=== PATIENT | female | born 1990 | race Caucasian/White ===

== ENCOUNTER 2019-02-26 13:05 | Day surgery (SDC) | payer MEDICAID, OTHER ==
[~2019-02-26 13:05] MED LIST: CEFAZOLIN SODIUM 2 GM in DEXTROSE 5%-WATER 100 ML IV PRN; IBUPROFEN 800 MG in NORMAL SALINE 250 ML IV PRN; RINGERS SOLUTION,LACTATED 1,000 ML IV PRN
[2019-02-26] MEDS ORDERED: MIDAZOLAM 2 MG/2 ML INJ ONE ×2 (13:50→14:45)
[2019-02-26] MEDS ORDERED: SCOPOLAMINE HYDROBROMIDE 1.5 MG PATCH.TD72 ONE (13:50)
[2019-02-26] MEDS ORDERED: ACETAMINOPHEN 325 MG TABLET ONE ×2 (14:22→16:41)
[2019-02-26] MEDS: ACETAMINOPHEN 325 MG TABLET PO PRN ×2 (14:25→16:39)
[2019-02-26] MEDS ORDERED: KETAMINE HCL INJ 500 MG/10 ML VIAL ONE (14:44)
[2019-02-26] MEDS ORDERED: FENTANYL CITRATE INJ/PF 100 MCG/2 ML AMPUL ONE (14:45)
[2019-02-26] MEDS ORDERED: PROPOFOL INJ 200 MG/20 ML VIAL IV ONE (14:45)
[2019-02-26] MEDS ORDERED: BUPIVACAINE HCL 0.25 % INJ/PF (2.5 MG/1 ML) 30 ML VIAL ONE (14:54)
[2019-02-26] MEDS ORDERED: LIDOCAINE 1% INJ-PF (10 MG/ML) 30 ML SDV ONE (14:54)
[2019-02-26] MEDS ORDERED: MEPERIDINE HCL/PF INJ 25 MG/1 ML DISP.SYRIN IV PRN (15:28)
[2019-02-26] MEDS ORDERED: FENTANYL CITRATE INJ/PF 100 MCG/2 ML AMPUL IV PRN ×3 (15:28)
[2019-02-26] MEDS ORDERED: MORPHINE SULFATE 10 MG/ML INJ IV PRN (15:28)
[2019-02-26] MEDS ORDERED: DIPHENHYDRAMINE HCL 50 MG/ML VIAL IV PRN (15:28)
[2019-02-26] MEDS ORDERED: PROMETHAZINE HCL INJ 25 MG/1 ML VIAL IV PRN (15:28)
[2019-02-26] MEDS ORDERED: HYDROCODONE/ACETAMINOPHEN 5-325 MG TABLET PO PRN (16:47)
[2019-02-26] MEDS ORDERED: HYDROCODONE/ACETAMINOPHEN 5-325 MG TABLET ONE (16:59)
[2019-02-26] MEDS ORDERED: ONDANSETRON HCL INJ/PF 4 MG/2 ML SDV ONE (17:15)
[2019-02-26 18:24] VITALS: BP 110/78
--- NOTE | 2019-02-28 10:38 | Discharge Summary ---
Discharge Summary (SDC) - Discharge Final Diagnosis: 8.5 cm posterior neck lipoma Date of Surgery: 02/26/19 Discharge Date: 02/26/19 Condition: Stable Forms: ASU Anesthesia D/C Instruction, Return to Work, Discharge POC-Surgical Service Treatment or Instructions: Discharge home. Diet as tolerated. Activity: Nonstrenuous. Follow-up with me in 7 to 10 days. Leave dressing in place 48 hours. On Friday, to remove dressing and shower normally. No tub baths or swimming pools x2 weeks. [place] 5/325 mg p.o. every 6 hours as needed for pain. Referrals: BLAISE MORENO MD [ACTIVE STAFF] - 03/08/19 10:45 am Discharge Diet: As Tolerated Respiratory Treatments at Home: Deep Breathing/Coughing, Incentive Spirometer Discharge Activity: Balance Activity w/Rest, No Lifting Over 10 Pounds, No tub bath Home Care Assistance: Provided by Family Report the Following to Your Physician Immediately: Shortness of Breath, Nausea, Increase in Pain, Fever over 101 Degrees, Unusual Bleeding, Redness, Swelling, Warmth, Increased Soreness, Drainage-Yellow, IV Site Infection Signs
--- NOTE | 2019-02-28 10:42 | Operative Report ---
Nonrecallable Operative Report DATE OF SURGERY: 02/26/19 PREOPERATIVE DIAGNOSIS: Lipoma of the inferior, posterior neck POSTOPERATIVE DIAGNOSIS: 8.5 cm lipoma of the inferior, posterior neck OPERATION: 1. Excision of 8.5 cm lipoma of the posterior neck. 2. Intermediate closure of 7 cm posterior neck incision SURGEON: BLAISE MORENO 1ST SHOW HOST OR HOSTESS: NAE ROBERTSON ANESTHESIA: LMAC TISSUE REMOVED OR ALTERED: 8.5 cm posterior neck lipoma COMPLICATIONS: None apparent ESTIMATED BLOOD LOSS: 30 cc PROCEDURE: Drains/implants: None. Procedure in detail: After informed consent was obtained, the patient was brought to the operating room and laid in the right lateral decubitus position. The area of the posterior neck was prepped and draped in a normal sterile fashion. 1% lidocaine mixed with quarter percent bupivacaine was injected into the skin around the lipoma. An incision was created approximately 7 cm in length over the lipoma. The fatty lesion was then excised from the surrounding tissue using sharp dissection and electrocautery. The mass was removed from the patient, and passed off the field. It was measured at 8.5 cm in maximal diameter. Hemostasis was achieved using electrocautery and suture ligations. The subcutaneous tissues were then closed using 3-0 Vicryl suture in simple running fashion. The overlying skin was closed using 4-0 Vicryl Rapide suture in subcuticular fashion. A pressure dressing was placed, and the procedure was concluded. All sponge, instrument, and needle counts were correct x2. Condition: Stable. aNe Robertson PA-C was scrubbed and present the entirety of the procedure. She assisted with all portions of the procedure including opening of the skin, dissection of the lipoma, removal of the lipoma, closure of the subcutaneous tissues, closure of the skin.
== END 2019-02-26 18:05 | disposition home or self-care (01) ==
LOC: OROUT 13:05
PROVIDERS: ATTEND Surgery
DX: D17.0 Benign lipomatous neoplasm of skin and subcutaneous tissue of head, face and neck (principal)
CPT/HCPCS: 81025; 88304 ×2; 00300; 21552; J2250; J0690; J3010; J3490 ×2; J2405; J7060; J7050; J2704; J1741; 300